=== PATIENT | female | born 1980 | race Caucasian/White ===

== ENCOUNTER 2024-12-22 11:21 | Outpatient (CLI) | payer OTHER, SELFPAY ==
--- NOTE | 2024-12-22 11:30 | ECG_ITS ---
Test Date: 2024-12-22 11:34:03 Measurements Intervals [place] Rate: 76 P: 28 TX: 157 QRS: 64 QRSD: 91 T: 36 QT: 381 QTc: 430 Interpretive Statements SINUS RHYTHM WARNING: DATA QUALITY MAY AFFECT INTERPRETATION No previous ECG available for comparison Electronically Signed On 12-22-2024 14:39:24 CDT by Guilherme Wadsworth M.D.
--- OUTSIDE RECORDS SUMMARY | 2024-12-22 12:35 | XMS_ITS | Encounter Summary ---
Author Organization [facility] Address [address] [place] [address] Care Team Providers Care Hone Operator Name Role Phone Anjali Medrano DO Primary Care Provider [phone] Encounter Details Date Type Department Care Team (Late st Contact Info) Description 04/16/2024 [facility] [address] [address] Kezia Mack FNP [address] [place] [address] XR CERVICAL SPINE 4 OR 5 VIEWS Social History Tobacco Use Types Packs/Day Years Used Date Smoking Tobacco: Never Smokeless Tobacco: Never Alcohol Use Standard Drinks/Week Comments Not Currently 1 (1 standard drink = 0.6 oz pure alcohol) Maybe once or twice a month, not weekly. 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
--- OUTSIDE RECORDS SUMMARY | 2024-12-22 12:35 | XMS_ITS | Clinical Summary ---
Author Organization [facility] Address [address] [place] [address] Care Team Providers Care Senior Industrial Engineer Name Role Phone Anjali Medrano DO Primary Care Provider [phone] Source Comments [facility],non-owned Affiliates and Associated Physician Practices is amultiple site organization consisting of ambulatory clinics and hospital sitesin [place], [place], [place] and [place]. This disclosure is being madepursuant to the Care Everywhere program and may not contain all information available regarding this patient. Last updated 17.[facility] Allergies No known active allergies Medications * Be aware that medications may not be up to date on this document. Alwaysverify current medications with the patient. Cholecalciferol (VITAMIN D3) 75 MCG (3000 UT) Active loratadine (CLARITIN) 10 MG tablet 10 mg 12/07/2006 Active Vit-Fe Fumarate-FA ( 1 PLUS 1 PO) Active COLLAGEN PO Active ISIBLOOM 0.15-30 MG-MCG tablet Take 1 tablet by mouth once daily 05/17/2020 Active Multiple Vitamin (DAILY-AMANDEEP) TABS Take 1 tablet by mouth once daily Active Active Problems No known active problems Social History Tobacco Use Types Packs/Day Years Used Date Smoking Tobacco: Never Smokeless Tobacco: Never Alcohol Use Standard Drinks/Week Comments Yes 0 (1 standard drink = 0.6 oz pur e alcohol) AUDIT-C Answer Date Recorded Q1: How often do you have a drink containing alc ohol? Monthly or less 12/25/2019 Average Number of Drinks Not on file 020 Frequency of Binge Drinking Not on file 12/02 Comments Unknown Sex and Gender Information Value Date Recorded Sex Assigned at Not on file Legal Sex Female 1:08 PM CDT Gender Identity Not on file Sexual Orientation Not on file Last Filed Vital Signs Vital Sign Reading Time Taken Comments Blood Pressure 99/70 03/04/2020 3:40 PM CORPORATE ACCOUNT EXECUTIVE Pulse 66 03/04/2020 3:40 PM CORPORATE ACCOUNT EXECUTIVE Temperature - - Respiratory Rate - - Oxygen Saturation - - Inhaled Oxygen Concentration - - Weight 65.8 kg (145 lb) 03/04/2020 2:43 PM CORPORATE ACCOUNT EXECUTIVE Height 172.7 cm (5' 8) 03/04/2020 2:43 PM CORPORATE ACCOUNT EXECUTIVE Body Mass Index 22.05 03/04/2020 2:43 PM CORPORATE ACCOUNT EXECUTIVE Plan of Treatment Health Maintenance Due Date Last Done Comments MAMMOGRAM 1981 HIV SCREENING 1996 HEPATITIS C SCREENING 10/22/1999 DTAP/TDAP/TD VACCINES (1 - Tdap) 2000 HEPATITIS B VACCINE (1 of 3 - 19+ 3-dose series) 2000 HPV VACCINE (1 - 3-dose SCDM series) 2008 DEPRESSION SCREENING 04/02/2024 COVID-19 VACCINE (1 - season) 2024 INFLUENZA VACCINE (#1) 2024 0, 12/31/2017, 12/31/2013, Additional history exists LIPID TESTING 01/04/2025 01/05/2020 ZOSTER VACCINE (1 of 2) 10/27/2031 HIB VACCINE Aged Out No longer eligi ble based on patient's age to complete this topic MENINGOCOCCAL (Group B) VACCINE SHARED DECISION-MAKING Aged Out No longer eligible based on patient's age to complete this topic MENINGOCOCCAL GROUPS A/C/Y/W VACCINE Aged Out No longer eligible based on patient's age to complete this topic PNEUMOCOCCAL VACCINE Aged Out No long er eligible based on patient's age to complete this topic Insurance [facility] Care Teams Senior Industrial Engineer Relationship Specialty Start Date End Date Anjali Medrano DO [address] [place] [address] PCP - General 12/25/19
--- OUTSIDE RECORDS SUMMARY | 2024-12-22 12:35 | XMS_ITS | Encounter Summary ---
Author Organization [facility] Address [address] [facility] [place] [address] Care Team Providers Care Motor Coach Driver Name Role Phone MarcelaAnjali Primary Care Provider [phone] Encounter Details Date Type Department Care Team (Late st Contact Info) Description 11/26/2024 Results Follow-Up [facility] Internal Medicine - [facility] [address] [place] [address] Anjali Pulliam PA [address] [facility] [address] [place] [address] HEMOGLOBIN A1C, VITAMIN D 25 HYDROXY, TSH REFLEXIVE, Additional followed-up results: 5 Social History Tobacco Use Types Packs/Day Years Used Date Smoking Tobacco: Never Smokeless Tobacco: Never Alcohol Use Standard Drinks/Week Comments Not Currently 1 (1 standard drink = 0.6 oz pure alcohol) Maybe once or twice a month, not weekly. Feeling Safe Answer Date Recorded Are you in a relationship wi th someone who hurts you emotionally and/or physically? 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 Not on file documented as of this encounter Plan of Treatment Not on file documented as of this encounter Procedures Procedure Name Priority Date/Time Associated Diagnosis Comments FOLATE, SERUM [facility] Add-on (Auto-Fax) 11/25/2024 12:00 AM CDT Macrocytosis documented in this encounter Results * FOLATE, SERUM (11/25/2024 12:00 AM CDT) FOLATE, SERUM 22.4 ng/mL [facility] Comment: Reference Range Low: <3.4 Borderline: 3.4-5.4 Normal: >5.4 Test Performed at: [facility] [address] [place] [address] Johan Reyes MD Blood 11/25/2024 11/26/2024 9:3 3 AM CDT us Anjali CHADWICK CHEMISTRY ORDERABLES Final Re sult [facility] [phone] [facility] [address] [place] [address] documented in this encounter Visit Diagnoses Diagnosis Macrocytosis- Primary Other specified diseases of blood and blood-forming organs documented in this encounter Care Teams Motor Coach Driver Relationship Specialty Start Date End Date Anjali Medrano DO [address] [place] [address] PCP - General Internal Medicine 07/17/18 documented as of this encounter
--- OUTSIDE RECORDS SUMMARY | 2024-12-22 12:35 | XMS_ITS | Clinical Summary ---
Author Organization [facility] Address [address] [place] [address] Phone Care Team Providers Care Fish Machine Feeder Name Role Phone Anjali Medrano Primary Care Provider [phone] Allergies No known active allergies Medications cholecalciferol, Vitamin D3, 125 mcg (5,000 unit) Capsule Take 5,000 Units by mouth daily. Active multivitamin (DAILY-AMANDEEP) tablet Take 1 Tablet by mouth daily. Active citalopram (CeleXA) 10 mg tablet Take 10 mg by mouth daily. 12/05/2023 Active levocetirizine (Xyzal) 5 mg tablet Take 5 mg by mouth late in the day. Active mv-mn/folic/B7/K 1/col/herb 353 (HAIR, SKIN AND NAILS, HERBS, ORAL) Take by mouth. Active ascorbic acid/collagen hydr (COLLAGEN SKIN RENEWAL ORAL) Take by mouth. Active Active Problems Patient Care Coordination No te Formatting of this note migh t be different from the original. CALL [place] FOR DELIVERY Problem Noted Date Diagnosed Date Amniotic fluid leaking 07/04/2021 Surrogate in second trimester 02/09/20 21 Advanced maternal age in multigravida, second tr imester 02/08/2021 Dichorionic diamniotic twin in second trimester 02/08/2021 Encounter for elective induction of labor 2017 (spontaneous vaginal delivery) 10/08/2017 Normal labor 11/08/2015 MIL (pit); o pos; gbs neg 06/21/2009 Encounters Date Type Department Care Team Description 12/19/2024 1:45 PM CDT Office Visit [facility] HUMIDIFIER OPERATOR - Medical [place] [address] [facility] [address] [place] [address] Brittny Patterson MD Well woman exam with routine gynecological exam (Primary Dx); Screening for cervical cancer; Need for influenza vaccination 12/16/2024 External Device Data STL ABSTRACTION Provider, Abstract 11/26/2024 Results Follow-Up [facility] Internal Medicine [place] [address] [address] [place] [phone] Anjali Pulliam PA HEMOGLOBIN A1C, VITAMIN D 25 HYDROXY, TSH REFLEXIVE, Additional followed-up results: 5 11/24/2024 3:10 PM CDT - 11/24/2024 11:59 PM CDT Hospital Encounter [facility] A [address] [place] [address] Anjali Medrano DO Discharge Disposition: Home or Self Care 11/24/2024 Results Follow-Up [facility] Internal Medicine [place] [address] [address] [place] [address] Anjali Medrano DO MAMMO 3D SACHA SCREEN BILAT W OR WO CAD 11/20/2024 3:20 PM CDT Office Visit [facility] Medicine [place] [address] [address] [place] [phone] Anjali Pulliam PA Weight gain (Primary Dx); Hyperglycemia; History of gestational diabetes; Vitamin D deficiency; Encounter for vitamin deficiency screening; Screening for cardiovascular condition 11/18/2024 External Device Data STL ABSTRACTION Provider, Abstract 10/15/2024 External Device Data STL ABSTRACTION Provider, Abstract from Last 3 Months Immunizations Immunization Administration Dates Next Due (ADACEL/BOOSTRIX)(10 YR UP) TDAP VACCINE, 0.5ML, IM 06/01/2021,08/20/2017,09/20/2015,2009 (PFIZER)(12 YR UP) COVID-19 VACCINE - EMERGENCY USE AUTHORIZATION, MRNA, [id number](PF) 30 MCG/0.3 ML IM SUSP 05/20/2020,04/29/2020 (TDVAX)(7 YRS UP) TETANUS AN D DIPHTHERIA TOXOIDS, ADSORBED (2 LF OF TETANUS TOXOID AND 2 LF OF DIPHTHERIA TOXOID), 0.5ML (PF), IM 04/02/2001 Hepatitis A Vaccine 01/09/2013,04/02/2001 INFLUENZA VACCINE QUADRIVALE NT 6 MOS UP PF IM 01/11/2021,01/05/2020 INFLUENZA VACCINE TRIVALENT SPLIT VIRUS, (6 MOS UP), 0.5ML (PF), IM 12/19/2024 Influenza A (H1N1) Vaccine IM 04/02/2009 Influenza Seasonal Unspecifi ed Formulation IM 01/15/2024,12/31/2022,05/22/2019,2017,12/31/2013,01/22/2013,04/02/2009 Influenza Vaccine Tri Rcmb 18+ PF IM 12/31/2013 Influenza Virus Vaccine, Spl it Virus (Incl. Purified Surface antigen)-retired CODE 12/31/2009 Tdap Vaccine > 7 Yo IM VFC 06/23/2009 Family History Medical History Relation Name Comments Diabetes Brother Juanjo Shukla Healthy Daughter Jasmin Moore Healthy Diabetes Father Vinicio Shukla Heart Disease Father Vinicio Shukla Kidney Disease Father Vinicio Shukla esrd due to d m Diabetes Mother Terra Shukla Healthy Son 1 [place] Healthy Healthy Son 2 Vinicio Moore Healthy Relation Name Status Comments Brother Juanjo Shukla Alive Daughter Jasmin Moore Alive Father Vinicio Shukla Mother Terra Shukla Alive Son 1 [place] Alive Son 2 Vinicio Moore Alive Social History Tobacco Use Types Packs/Day Years Used Date Smoking Tobacco: Never Passive Smoke Exposure: Never Smokeless Tobacco: Never Tobacco Cessation:Counseling Given: Not Answered Alcohol Use Standard Drinks/Week Comments Not Currently 1 (1 standard drink = 0.6 oz pure alcohol) Maybe once or twice a month, not weekly. Feeling Safe Answer Date Recorded Are you in a relationship wi th someone who hurts you emotionally and/or physically? 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 Not on file Last Filed Vital Signs Vital Sign Reading Time Taken Comments Blood Pressure 112/80 12/19/2024 1:55 PM CDT Pulse 73 11/20/2024 3:16 PM CDT Temperature 36.7 C (98 F) 07/06/2021 7:33 AM CDT Respiratory Rate 16 04/14/2024 1:14 PM BACK CLOSER Oxygen Saturation 98% 11/20/2024 3:16 PM CDT Inhaled Oxygen Concentration - - Weight 76.6 kg (168 lb 12.8 oz) 12/19/2024 1:55 PM CDT Height 170.2 cm (5' 7) 12/19/2024 1:55 PM CDT Body Mass Index 26.44 12/19/2024 1:55 PM CDT Plan of Treatment Health Maintenance Due Date Last Done Comments HPV VACCINES (1 - 3-dose SCD M series) 2008 BREAST CANCER SCREENING 11/24/2025 11/25/19, 12/19/2023, 12/18/2022, Additional history exists PAP SMEAR 12/18/2026 12/19/2023, 12/01, 11/08/2021, Additional history exists Pre-Diabetes and Diabetes Screening 11/26/2027 11/25/2024, 01/05/2020 CERVICAL CANCER SCREENING 12/18/2028 HPV/Cotest (21-29) 12/18/2028 12/19/2023, 0 12/18/2022, 11/08/2021, Additional history exists HPV/Cotest (30-65) 12/18/2028 12/19/2023, 0 12/18/2022, 11/08/2021, Additional history exists DTAP/TDAP/TD VACCINES (6 - T d or Tdap) 06/02/2031 06/01/2021, 08/20/2017, 09/20/2015, Additional history exists COVID-19 Vaccine Discontinued 05/20/2020, 04/29/2020 INFLUENZA VACCINE Completed 12/19/2024, , 12/31/2022, Additional history exists Preventative Visit- Commercial Completed 0 12/19/2024, 03/22/2020, 03/22/2020, Additional history exists Procedures Procedure Name Priority Date/Time Associated Diagnosis Comments COMPREHENSIVE METABOLIC PANEL Routine 11/25/2024 10:39 AM CDT Screening for cardiovascular condition CBC WITH DIFFERENTIAL Routine 11/25/2024 10:39 AM CDT Screening for cardiovascular condition VITAMIN B12 LEVEL Routine 11/25/2024 10:39 AM CDT Encounter for vitamin deficiency screening INSULIN LEVEL Routine 11/25/2024 10:39 AM CDT Weight gain TSH REFLEXIVE Routine 11/25/2024 10:39 AM CDT Weight gain VITAMIN D 25 HYDROXY Routine 11/25/2024 10:39 AM CDT Vitamin D deficiency HEMOGLOBIN A1C Routine 11/25/2024 10:39 AM CDT Hyperglycemia History of gestational diabetes FOLATE, SERUM [facility] (Auto-Fax) 11/25/2024 12:00 AM CDT Macrocytosis MAMMO 3D SACHA SCREEN BILAT W OR WO CAD Routine 11/24/2024 3:35 PM CDT Visit for screening mammogram CERV/VAG CYTO AGE BASED SCREEN PAP Routine 12/19/2023 2:39 PM CDT Encounter for gynecological examination without abnormal finding from Last 3 Months or Most Recently Relevant to Health Maintenance Results * TSH REFLEXIVE (11/25/2024 10:39 AM CDT) TSH 1.11 mIU/L [facility] Comment: Reference Range > or = 20 Years 0.40-4.50 Ranges First trimester 0.26-2.66 Second trimester 0.55-2.73 Third trimester 0.43-2.91 Test Performed at: [facility] [address] [place] [address] Johan Reyes MD Blood 11/25/2024 10:3 9 AM CDT 11/25/2024 10:40 AM CDT us Anjali CHADWICK CHEMISTRY ORDERABLES Final Re sult [facility] [phone] [facility] [address] [place] [address] * (ABNORMAL) CBC WITH DIFFERENTIAL (11/25/2024 10:39 AM CDT) Pathologist [facility] WBC 4.9 3.8 - 10.8 Thousand/u L [facility] RBC 4.18 3.80 - 5.10 Million/uL [facility] HEMOGLOBIN 13.9 11.7 - 15.5 g/dL [facility] HEMATOCRIT 41.9 35.0 - 45.0 % [facility] MCV 100.2(H) 80.0 - 100.0 fL [facility] MCH 33.3(H) 27.0 - 33.0 pg [facility] MCHC 33.2 32.0 - 36.0 g/dL [facility] Comment: For adults, a slight decrease in the calculated MCHC value (in the range of 30 to 32 g/dL) is most likely not clinically significant; however, it should be interpreted with caution in correlation with other red cell parameters and the patient's clinical condition. RDW 11.6 11.0 - 15.0 % [facility] PLATELETS 229 140 - 400 Thousand/u L [facility] MPV 10.5 7.5 - 12.5 fL [facility] NEUTROPHIL ABSOLUTE 2,881 1,500 - 7,800 cells/uL [facility] LYMPHOCYTE ABSOLUTE 1,240 850 - 3,900 cells/uL [facility] MONOCYTE ABSOLUTE 431 200 - 950 cells/uL [facility] EOSINOPHIL ABSOLUTE 289 15 - 500 cells/uL [facility] BASOPHILS ABSOLUTE 59 0 - 200 cells/uL [facility] NEUTROPHIL 58.8 % [facility] LYMPHOCYTES 25.3 % [facility] MONOCYTE 8.8 % [facility] EOSINOPHILS 5.9 % [facility] BASOPHILS 1.2 % [facility] Comment: FASTING:YES FASTING: YES Test Performed at: [facility] [address] [place] [address] Johan Reyes MD Blood 11/25/2024 10:3 9 AM CDT 11/25/2024 10:40 AM CDT us Anjali CHADWICK HEMATOLOGY ORDERABLES Final R esult Performing Organization Address City/State/[facility] Co de Phone Number [facility] [phone] [facility] [address] [place], [place] [address] [address] * VITAMIN D 25 HYDROXY (11/25/2024 10:39 AM CDT) VITAMIN D, 25 OH, TOTAL 89 30 - 100 ng/mL [facility] Comment: Vitamin D Status 25-OH Vitamin D: Deficiency: <20 ng/mL Insufficiency: 20 - 29 ng/mL Optimal: > or = 30 ng/mL For 25-OH Vitamin D testing on patients on D2-supplementation and patients for whom quantitation of D2 and D3 fractions is required, the [facility] 25-OH VIT D, (D2,D3), LC/MS/MS is recommended: order code 57237 (patients >2yrs). See Note 1 Note 1 For additional information, please refer to http://education.Gencore Systems.HALGI/faq/AVH354 (This link is being provided for informational/ educational purposes only.) FASTING:YES FASTING: YES Test Performed at: [facility] [address] [facility] [place] [address] Johan Reyes MD Blood 11/25/2024 10:3 9 AM CDT 11/25/2024 10:40 AM CDT Anjali CHADWICK CHEMISTRY ORDERABLES Final Re sult Performing Organization Address City/State/[facility] de Phone Number [facility] [phone] [facility] [address] [place] [address] * INSULIN LEVEL (11/25/2024 10:39 AM CDT) Pathologist [facility] INSULIN LEVEL 4.2 uIU/mL [facility] Comment: Reference Range < or = 18.4 Risk: Optimal < or = 18.4 Moderate NA High >18.4 Adult cardiovascular event risk category cut points (optimal, moderate, high) are based on Insulin Reference Interval studies performed at [facility] in 2021. FASTING:YES FASTING: YES Test Performed at: [facility] [address] [place] [address] Johan Reyes MD Blood 11/25/2024 10:3 9 AM CDT 11/25/2024 10:40 AM CDT Anjali CHADWICK CHEMISTRY ORDERABLES Final Re sult Performing Organization Address [facility] de Phone Number [facility] [phone] [facility] [address] [place] [address] * HEMOGLOBIN A1C (11/25/2024 10:39 AM CDT) Pathologist [facility] HEMOGLOBIN A1C 5.1 <5.7 % of total Hgb [facility] Comment: For the purpose of screening for the presence of diabetes: <5.7% Consistent with the absence of diabetes 5.7-6.4% Consistent with increased risk for diabetes (prediabetes) > or =6.5% Consistent with diabetes This assay result is consistent with a decreased risk of diabetes. Currently, no consensus exists regarding use of hemoglobin A1c for diagnosis of diabetes in children. According to [place] Diabetes Association (ADA) guidelines, hemoglobin A1c <7.0% represents optimal control in non- diabetic patients. Different metrics may apply to specific patient populations. Standards of Medical Care in Diabetes(ADA). ESTIMATED AVERAGE GLUCOSE (MG/DL) 100 mg/dL [facility] ESTIMATED AVERAGE GLUCOSE (MMOL/L) 5.5 mmol/L [facility] Comment: FASTING:YES FASTING: YES Test Performed at: [facility] [address] [place] [address] Johan Reyes Blood 11/25/2024 10:3 9 AM CDT 11/25/2024 10:40 AM CDT Anjali CHADWICK CHEMISTRY ORDERABLES Final Re sult Performing Organization Address City/[facility]/ZIP [facility] Phone Number [facility] [phone] [place] [address] [place] [address] * VITAMIN B12 LEVEL (11/25/2024 10:39 AM CDT) Pathologist [facility] VITAMIN B12 507 200 - 1100 pg/mL [facility] Comment: Test Performed at: [facility] [address] [place] [address] Johan Reyes MD Blood 11/25/2024 10:3 9 AM CDT 11/25/2024 10:40 AM CDT Anjali CHADWICK CHEMISTRY ORDERABLES Final Re sult Performing Organization Address City/[facility] Phone Number [facility] [phone] [facility] [address] [place] [address] * COMPREHENSIVE METABOLIC PANEL (11/25/2024 10:39 AM CDT) Pathologist [facility] GLUCOSE 84 65 - 99 mg/dL [facility] Comment: Fasting reference interval BUN 14 7 - 25 mg/dL [facility] CREATININE 0.71 0.50 - 0.99 mg/dL [facility] GFR 108 > OR = 60 mL/min/1. 73m2 [facility] BUN/CREAT RATIO SEE NOTE: 6 - 22 (calc) [facility] Comment: Not Reported: BUN and Creatinine are within reference range. SODIUM 139 135 - 146 mmol/L [facility] POTASSIUM 4.1 3.5 - 5.3 mmol/L [facility] CHLORIDE 101 98 - 110 mmol/L [facility] CO2 29 20 - 32 mmol/L [facility] CALCIUM 9.5 8.6 - 10.2 mg/dL [facility] TOTAL PROTEIN 6.8 6.1 - 8.1 g/dL [facility] ALBUMIN 4.6 3.6 - 5.1 g/dL [facility] GLOBULIN 2.2 1.9 - 3.7 g/dL (calc) [facility] ALBUMIN/GLOBULIN RATIO 2.1 1.0 - 2.5 (calc) [facility] BILIRUBIN TOTAL 0.6 0.2 - 1.2 mg/dL [facility] ALKALINE PHOSPHATASE 40 31 - 125 U/L [facility] AST 17 10 - 30 U/L [facility] ALT 10 6 - 29 U/L [facility] Comment: FASTING:YES FASTING: YES Test Performed at: [facility] [address] [place] [id number] Johan Reyes MD Blood 11/25/2024 10:3 9 AM CDT 11/25/2024 10:40 AM CDT Anjali CHADWICK CHEMISTRY ORDERABLES Final Re sult [facility] [phone] [facility] [address] * FOLATE, SERUM (11/25/2024 12:00 AM CDT) FOLATE, SERUM 22.4 ng/mL [facility] Comment: Reference Range Low: <3.4 Borderline: 3.4-5.4 Normal: >5.4 Test Performed at: [facility] [address] [place] [phone] Johan Reyes MD Blood 11/25/2024 11/26/2024 9:3 3 AM CDT Anjali CHADWICK CHEMISTRY ORDERABLES Final Re sult [facility] [phone] [facility] [address], [place] [address] * MAMMO 3D SACHA SCREEN BILAT W OR WO CAD (11/24/2024 3:35 PM CDT) Anatomical Region Laterality Modality Breast Bilateral Mammography 11/24/2024 3:35 PM CDT Impressions 11/24/2024 3:58 PM CDT IMPRESSION: Negative bilateral screening mammogram. Recommend routine followup. OVERALL FINAL ASSESSMENT: BI-RADS CATEGORY 1: Negative. DICTATION LOCATION: [facility] Narrative 11/24/2024 3:58 PM CDT BILATERAL SCREENING DIGITAL MAMMOGRAM WITH 3D TOMOSYNTHESIS AND CAD DATE: 11/24/2024 3:35 PM HISTORY: Annual screening study. COMPARISON: 12/19/2023 TECHNIQUE: A bilateral screening mammogram was performed. Low-dose full-field digital breast tomosynthesis examination was performed with 2D and 3D acquisitions. Examination is read in conjunction with computer aided detection. BREAST COMPOSITION: Scattered fibroglandular densities FINDINGS: No new masses, suspicious calcifications, or areas of asymmetry or distortion are identified. The images were reviewed using the CAD system. Anjali Medrano DO MAMMO ORDERABLES Final Result * CERV/VAG CYTO AGE BASED SCREEN PAP (12/19/2023 2:39 PM CDT) COMMENT (PAP): [facility] [place] Comment: This order for age-based cervical cancer and STI screening follows ACOG guidelines(PB 168, 140, YYY108). See individual assays for performing site location. CLINICAL INFORMATION [facility] [place] Comment:None given LAST MENSTRUAL PERIOD [facility] [place] Comment:12/10/2023 PREV PAP: [facility] [place] Comment:NONE GIVEN PREV BX: [facility] Comment:NONE GIVEN SOURCE [facility] [place] Comment:Endocervix ADEQUACY: [facility] Comment: Satisfactory for evaluation. Endocervical/transformation zone component present. PAP INTERP [facility] Comment: Cytology Results: Negative for intraepithelial lesion or malignancy. COMMENT (PAP TEST) [facility] Comment: This Pap test has been evaluated with computer assisted technology. INSTRUCTOR WARPER: Evon [place] Comment: TMK, CT(ASCP) CT screening location: [place] [address] [place] [address] EXPLANATORY NOTE [facility] Comment: EXPLANATORY NOTE: The Pap is a screening test for cervical cancer. It is not a diagnostic test and is subject to false negative and false positive results. It is most reliable when a satisfactory sample, regularly obtained, is submitted with relevant clinical findings and history, and when the Pap result is evaluated along with historic and current clinical information. HPV E6/E7 Not Detected Not Detected [facility] Comment: Methodology: Professor Of Apologetics-Mediated Amplification This assay detects E6/E7 viral messenger RNA (mRNA) from 14 high-risk HPV types (16,18,31,33,35,39,45,51,52,56,58,59,66,68). Cervical sources are required for HPV testing. If a vaginal source from a patient who has had a total hysterectomy with removal of cervix was submitted, please contact the testing laboratory for alternative testing options. For additional information, please refer to http://education.Rankomat.pl/faq/LUW550b7 (This link if provided for information/ educational purposes only.) Test Performed at: [facility] [address] [place] [address] Johan AGUIRRE Genital SWAB OF ENDOCERVIX / Unknown 12/19/2023 2:39 PM CDT 12/20/2023 12:57 AM CDT us Ania Aranda MD PATHOLOGY/CYTOLOGY ORDERAB LES Final Result [facility] [phone] [facility] [address] [place] [address] from Last 3 Months or Most Recently Relevant to Health Maintenance Insurance [employer] [facility] [facility] BLUE ACCESS CHOICE RX EXPRESS S[employer]IP[employer] Express RX [employer] Commercial Advance Directives For more information, please contact: [phone] * Full Code (Latest Code Status on File) Date Activated Date Inactivated Comments 07/04/2021 5:29 AM 07/04/2021 5:11 PM * Full Code Date Activated Date Inactivated Comments 10/08/2017 6:19 PM 10/10/2017 4:11 PM * Full Code Date Activated Date Inactivated Comments 10/08/2017 8:51 AM 10/08/2017 6:19 PM * Full Code Date Activated Date Inactivated Comments 11/08/2015 11:13 AM 11/10/2015 1:22 PM * Full Code Date Activated Date Inactivated Comments 11/08/2015 6:34 AM 11/08/2015 11:13 AM Care Teams Fish Machine Feeder Relationship Specialty Start Date End Date Anjali Medrano DO [address] [address] PCP - General Internal Medicine 07/17/18
--- OUTSIDE RECORDS SUMMARY | 2024-12-22 12:35 | XMS_ITS | Encounter Summary ---
Author Organization [facility] Address [address] [place] [address] Care Team Providers Care Pack Press Operator Name Role Phone Anjali Medrano DO Primary Care Provider Encounter Details Date Type Department Care Team (Late st Contact Info) Description 11/24/2024 Results Follow-Up [facility] Internal Medicine - [address] [place] [id number] Anjali Medrano DO 20 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 [address] [place] [address] PCP - General Internal Medicine 07/17/18 documented as of this encounter
== END 2024-12-22 11:22 | disposition home or self-care (01) ==
LOC: ANHSURGERY 11:24
PROVIDERS: Visit Provider Surgery Plastic and Reconstructive Surgery
DX: Z01.810 Encounter for preprocedural cardiovascular examination (principal); L57.4 Cutis laxa senilis
CPT/HCPCS: 93005

== ENCOUNTER 2024-12-30 00:24 | Day surgery (SDC) | payer OTHER, BC, SELFPAY ==
--- OUTSIDE RECORDS SUMMARY | 2024-06-12 04:00 | XMS_ITS ---
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
--- OUTSIDE RECORDS SUMMARY | 2024-06-17 03:24 | XMS_ITS | Continuity of Care Document ---
Author Organization [facility] Address [address] [place] [address] Phone Care Team Providers Care Strategic Planning Analyst Name Role Phone Birgit Carvajal Unavailable Unavailable Procedures Procedure Date Therapeutic Activities Therapeutic Exercise Manual Therapy Therapeutic Activities Neuromuscular Re-Ed Therapeutic Exercise Therapeutic Activities Therapeutic Exercise Manual Therapy Therapeutic Activities Therapeutic Exercise Manual Therapy PT Evaluation Moderate Complexity Therapeutic Activities Therapeutic Exercise Advance Directives Directive Yes / No Effective Date File Name No Information Encounters Encounter Description Practice Location Reason(s) For Visit Diagnoses Date Provider Providers Copied on Encounter [facility], [address] [address], [place], [place], [id number], tel:[phone] [place] No Information Lee Genao. [address] [facility], [facility] [address], [place], [facility], [place]. tel:[phone] [facility], [address], [place], [place], [id number], tel:[phone] [place] No Information Lee Genao. [address] [facility], [facility] [address], [place], [place], [facility], [place]. tel:[phone] Referring Provider: Anjali Medrano, [address] [place], [address]. tel:[phone], [id number], tel:[phone] [place] No Information Lee Birgit. [address] [place] [address], [address], [facility], . tel:[phone] Referring Provider: Anjali Medrano, [place], [address]. tel:[phone], [id number], tel:[phone] [place] No Information Lee Birgit. [address] [place] [address], [address], [facility], . tel:[phone] Referring Provider: [place], [address]. tel:[phone], [id number], tel:[phone] [place] No Information Lee Birgit. [address] [place] [address], [facility] [address], [place], [facility], . tel:[phone] Referring Provider: [place], [address]. tel:[phone], [id number], tel:[phone] [place] No Information [place] Birgit. [address] [place] [address], [address], [place], [facility], . tel:[phone] Referring Provider: [place], [address]. tel:[phone] Family History Family Member Type Diagnosis Age At Onset No Information Payers Payer name Insurance type Covered constitution party ID Authorgreyson betancur(s) [facility] Forrest [id number] Social History Type Description Quantity Date Captured Comments Sex Female Smoking Status No Information Chief Complaint And Reason For Visit No Information Reason For Referral Reason For Referral No Information History Of Present Illness Encounter Date Complaint History Of Prese nt Illness No Information Functional Status Date Functional Assessmen t No Information Instructions Date Instruction Additional Infor mation No Information Assessments Type Assessment Date No Information Patient Care Teams Name Effective Dates (start - stop) Status Members No Information
--- OUTSIDE RECORDS SUMMARY | 2024-06-18 04:00 | XMS_ITS ---
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 Yes How often did you have a dri nk containing alcohol in the past year? 2 to 4 times a month (2 points) Points 2 Interpretation Negative VITAL SIGNS BMI 24.27 kg/m2 06/18/2024 Height 67 in 06/18/2024 Weight 155 lbs 06/18/2024 Encounters Encounter Location Date Provider Diagnosis [facility] [address] [place] [address] 06/18/2024 Concepcion Sanzoscar Neck pain M54.2 and Cervical radiculopathy M54.12 ASSESSMENTS Encounter Date Diagnosis Assessment Notes Treatment Notes Treatment Clinical Notes 06/18/2024 Neck pain (ICD-10 - M54.2) 06/18/2024 Cervical radiculopathy (ICD-10 - M54.12) PLAN OF TREATMENT No Information Progress Notes * Examination Category Sub-Category Detail Notes X-Ray CERVICAL SPINE X-RAY: Seven view s of the cervical spine were obtained today. They demonstrate C5 to 6 with moderate to severe disc degeneration and right foraminal stenosis. C6 to 7 shows mild to moderate disc degeneration MRI Imaging Studies CERVICAL SPINE MRI: MRI of t he cervical spine from 05/14/2024 demonstrates C5 to 6 with a broad-based disc protrusion and moderate right foraminal stenosis. C6 to 7 shows a broad-based disc protrusion, mild bilateral foraminal stenosis, and a central HIZ. There is moderate disc degeneration from C5 to 7
--- OUTSIDE RECORDS SUMMARY | 2024-07-01 05:57 | XMS_ITS ---
Author Organization [facility] Address [address] [address] Care Team Providers Care Director Agency & Strategic Partnerships Name Role Phone Anjali Medrano Primary Care Provider Kade Moore Unavailable [phone] REASON FOR VISIT inj PROBLEMS Problem Type ICD Code Onset Dates Problem Status W/U Status Risk SNOMED Code Notes Problem Cervical radiculopathy (M54.12) Active confirmed Cervical radiculopathy (23582258) PROCEDURES Procedure Date Ordered Date Performed Result Body Sit e Cervical Selective Nerve Root Injection 07/01/2024 025 N/A Encounters Encounter Location Date Provider Diagnosis [facility] [facility] [address] [place] [address] 07/01/2024 Kade Marroquin Cervical radiculopat hy M54.12 ASSESSMENTS Encounter Date Diagnosis Assessment Notes Treatment Notes Treatment Clinical Notes 07/01/2024 Cervical radiculopathy (ICD-10 - M54.12) PLAN OF TREATMENT No Information
--- OUTSIDE RECORDS SUMMARY | 2024-07-18 03:34 | XMS_ITS ---
Author Organization [facility] Address [address] [facility] [address] [place] [address] Care Team Providers Care Bag Machine Operator Helper Name Role Phone PaulAnjali calzada Primary Care Provider Kade Moore Unavailable [phone] REASON FOR VISIT inj update Encounters Encounter Location Date Provider Diagnosis [facility] [address] [facility] [address] [place] [address] 07/18/2024 Kade Marroquin PLAN OF TREATMENT No Information
--- OUTSIDE RECORDS SUMMARY | 2024-08-13 07:33 | XMS_ITS ---
Author Organization [facility] Address [address] [facility] [address] [place] [address] Care Team Providers Care Critical Care Educator Name Role Phone Anjali Medrano Primary Care Provider Kade Moore Unavailable [phone] REASON FOR REFERRAL Reason Eval and Treat Diagnosis 1 Cervical radiculopat hy (M54.12) Referral Organization [facility] Referring Provider First Name Kade Referring Provider Last Name Lopez Referring Provider Speciality Orthopedic Surgery Referred Provider Ramila Amaro Referred Provider Specialty Physical Med icine and Rehabilitation Referral Priority Routine REASON FOR VISIT next steps Encounters Encounter Location Date Provider Diagnosis [facility] [address] [facility] [address] [place] [address] 08/13/2024 Kade Marroquin PLAN OF TREATMENT Referrals Referral Date Details Eval and TreatRosina Consultation Request Notes Referral Date Referring Provider Referred Provider Not yuly 08/13/2024 Kade Marroquin Patricia Eval and T reat
--- NOTE | 2024-12-17 14:34 | SUR.PREOP ---
[facility] has started construction of its new state of the art ER which will open Spring 2026. With this, we anticipate parking may be a challenge for some our surgical patients and families. Parking spaces are limited but are available for all Surgical, obstetrics, and ER patients sharing this lot. If you arrive and find you are having a hard time finding a parking space, please note that we understand the challenges, please drive around the hospital and park near Hospital Entrance 1. When you enter this entrance, you can ask a volunteer to direct or take you back to the surgical waiting area to check in. We appreciate everyone?s understanding of these expected challenges while we build for your future. Report to the Outpatient Waiting Room, entrance under the green pavilion located off [address], at time ___06____ on date ____12/30/24___. Planned Procedure Time: ____729____.? Time changes happen often and if your time is changed the preop area will call you the afternoon before. - You and your visitor will be asked to self-screen and do not enter if you have any COVID symptoms. Please call surgeon if you need to reschedule. - A mask is optional within the hospital at this time. Patients may have clear liquids (water, carbonated beverages, clear teas, apple juice) until 3 hours prior to surgery with a maximum of 20 ounces. - NO CLEAR LIQUIDS AFTER 0430 - No food from midnight until time of surgery and no smoking, or chewing tobacco (or any form of nicotine). No chewing gum, candy or mints. - Infants may have breast milk until 4 hours before surgery, formula 6 hours prior to surgery. - Children will be allowed to drink immediately following surgery.? If applicable, please bring a bottle or sippy cup to assist with drinking. Juice, water, soda, and popsicles are readily available.? For infants on formula, please bring formula the day of surgery.? Pacifiers are allowed. Take only the following medications with a SIP of water on the morning of surgery: N/A DO NOT STOP ANY OF YOUR OTHER PRESCRIPTION MEDICATIONS PRIOR TO SURGERY EXCEPT THE FOLLOWING Hold all vitamins and supplements for 3 days per anesthesiologist. Medications to discontinue per physician N/A Date to take last dose Please no make-up, nail romanian, hairspray, perfume, deodorant, or body powder the day of surgery.? No jewelry (including any body piercings) or valuables the day of surgery, leave them at home.? Please take a shower or bath the night before, or the morning of, surgery with an antibacterial soap.? Wear comfortable, loose fitting clothing.? Children are encouraged to wear pajamas. - Jewelry must be removed prior to entering the operating room.? Rings and piercings that are not removed may be cut off. - The hospital will not accept responsibility for valuables.? - Please leave all valuables, including medications, at home the day of surgery. If you are going home after surgery, a licensed lease purchase driver must drive you home.? - NO public transportation without another adult if you receive anesthesia. - We recommend that an adult stay with you for 24 hours following discharge. - We also recommend that you do not drive, make important decision, drink alcoholic beverages, or take any drugs that were not prescribed by your health care provider for at least 24 hours after your discharge time. For Pediatric surgeries, we recommend two adults accompany the child home. Follow any additional instructions given to you from your surgeon. Telephone instructions given to VICENTE GUERRA and asked if any additional questions and then verbalized understanding. Patient advised to call surgeon office or pre surgery nurse liaison [phone] if any additional questions.
[2024-12-17 14:50] VITALS: BMI 24.7
[2024-12-30] VITALS (15 sets, daily range): BP systolic 91–123; BP diastolic 44–69; PULSE 64–102; RESP 14–20; TEMP 36.3–37; O2SAT 95–100; BMI 24.7
--- OUTSIDE RECORDS SUMMARY | 2024-12-30 00:28 | XMS_ITS | Encounter Summary ---
Author Organization [facility] Address [address] [place] [address] Care Team Providers Care Business Development Name Role Phone Anjali Medrano DO Primary Care Provider [phone] Encounter Details Date Type Department Care Team (Late st Contact Info) Description 12/24/2024 Results Follow-Up [facility] DRY SAND MOLDER - Medical [place] [address] [facility] [address] [place] [address] Brittny Patterson MD [address] [place] [address] CERV/VAG CYTO AGE BASED SCREEN PAP Social History Tobacco Use Types Packs/Day Years Used Date Smoking Tobacco: Never Passive Smoke Exposure: Never Smokeless Tobacco: Never Alcohol Use Standard [...] Sex Assigned at Female 03/07/2024 1:31 PM SUPERVISOR GRAPHITE Legal Sex Female 5:51 AM SUPERVISOR GRAPHITE Gender Identity Female 03/07/2024 1:31 PM SUPERVISOR GRAPHITE Sexual Orientation Not on file 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
--- OUTSIDE RECORDS SUMMARY | 2024-12-30 00:28 | XMS_ITS | Clinical Summary ---
Author Organization [facility] Address [address] [place] [address] Phone Care Team Providers Care Timber Management Specialist Name Role Phone Anjali Medrano Primary Care Provider Allergies No known active allergies Medications cholecalciferol, [...] Encounters Date Type Department Care Team Description 12/24/2024 Results Follow-Up [facility] - [facility] [place] [address] [place] [address] Brittny Patterson MD CERV/VAG CYTO AGE BASED SCREEN PAP 12/19/2024 1:45 PM CDT Office Visit [facility] - [facility] [address] [place] [address] Brittny Patterson MD Well woman exam with routine gynecological exam (Primary Dx); Screening for cervical cancer; Need for influenza vaccination 12/16/2024 External Device Data STL ABSTRACTION Provider, Abstract 11/26/2024 Results Follow-Up [facility] Internal Medicine - [place] [address] [address] [place] [address] Anjali Pulliam PA HEMOGLOBIN A1C, VITAMIN D 25 HYDROXY, TSH REFLEXIVE, Additional followed-up results: 5 11/24/2024 3:10 PM CDT - 11/24/2024 11:59 PM CDT Hospital Encounter [facility] [address] [place] [address] Anjali Medrano DO Discharge Disposition: Home or Self Care 11/24/2024 Results Follow-Up [facility] Internal [facility] - [place] [address] [address] [place] [address] Anjali Medrano DO MAMMO 3D SACHA SCREEN BILAT W OR WO CAD 11/20/2024 3:20 PM CDT Office Visit [facility] - [place] [address] [address] [place] [address] Anjali Pulliam PA Weight gain (Primary Dx); [...] COVID-19 VACCINE - EMERGENCY USE AUTHORIZATION, MRNA, [id number](PF) 30 MCG/0.3 ML IM SUSP 05/20/2020,04/29/2020 (TDVAX)(7 [...] Sex Assigned at Female 03/07/2024 1:31 PM VICE PRESIDENT FOR PHILANTHROPY Legal Sex Female 5:51 AM VICE PRESIDENT FOR PHILANTHROPY Gender Identity Female 03/07/2024 1:31 PM VICE PRESIDENT FOR PHILANTHROPY Sexual Orientation Not on file 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 Not on file Last Filed Vital Signs Vital Sign Reading Time Taken Comments Blood Pressure 112/80 12/19/2024 1:55 PM CDT Pulse 73 11/20/2024 3:16 PM CDT Temperature 36.7 C (98 F) 07/06/2021 7:33 AM CDT Respiratory Rate 16 04/14/2024 1:14 PM VICE PRESIDENT FOR PHILANTHROPY Oxygen Saturation 98% 11/20/2024 3:16 PM CDT Inhaled Oxygen Concentration - - Weight 76.6 kg (168 lb 12.8 oz) 12/19/2024 1:55 PM CDT Height 170.2 cm (5' 7) 12/19/2024 1:55 PM CDT Body Mass Index 26.44 12/19/2024 1:55 PM CDT Plan of Treatment Health Maintenance Due Date Last Done Comments HPV VACCINES (1 - 3-dose SCD M series) 2008 BREAST CANCER SCREENING 11/24/2025 11/25/19 25, 12/19/2023, 12/18/2022, Additional history exists Pre-Diabetes and Diabetes Screening 11/26/2027 11/25/2024, 01/05/2020 PAP SMEAR 12/20/2027 12/19/2024, 12/01, 12/18/2022, Additional history exists CERVICAL CANCER SCREENING 12/19/2029 HPV/Cotest (21-29) 12/19/2029 12/19/2024, 0 12/19/2023, 12/18/2022, Additional history exists HPV/Cotest (30-65) 12/19/2029 12/19/2024, 0 12/19/2023, 12/18/2022, Additional history exists DTAP/TDAP/TD VACCINES (6 - T d or Tdap) 06/02/2031 06/01/2021, 08/20/2017, 09/20/2015, Additional history exists COVID-19 Vaccine Discontinued 05/20/2020, 04/29/2020 INFLUENZA VACCINE Completed 12/19/2024, , 12/31/2022, Additional history exists Preventative Visit- Commercial Completed 0 12/19/2024, 03/22/2020, 03/22/2020, Additional history exists Procedures Procedure Name Priority Date/Time Associated Diagnosis Comments CERV/VAG CYTO AGE BASED SCREEN PAP Routine 12/19/2024 2:20 PM CDT Screening for cervical cancer COMPREHENSIVE METABOLIC PANEL Routine 11/25/2024 10:39 AM [...] 3:35 PM CDT Visit for screening mammogram from Last 3 Months Results * CERV/VAG CYTO AGE BASED SCREEN PAP (12/19/2024 2:20 PM CDT) COMMENT (PAP): [facility] Comment: This order for age-based cervical cancer and STI screening follows ACOG guidelines(PB 168, 140, ZGU628). See individual assays for performing site location. CLINICAL INFORMATION [facility] Comment:None given LAST MENSTRUAL PERIOD [facility] Comment:12/12/2024 PREV PAP: [facility] Comment:NONE GIVEN PREV BX: [facility] Comment:NONE GIVEN SOURCE [facility] Comment:Endocervix ADEQUACY: [facility] Comment: Satisfactory for evaluation. Endocervical/transformation zone component present. PAP INTERP [facility] Comment: Cytology Results: Negative for intraepithelial lesion or malignancy. COMMENT (PAP TEST) [facility] Comment: This Pap test has been evaluated with the ThinPrep(R) Imaging System. TORQUE TESTER: [facility] Comment: ABC, CT(ASCP) CT Screening Location: [place] [address] [address] [address] [address] CLIA: [id number] Slide preparation performed at: [facility], [address] [place] [address], [address] CLIA: [id number] REVIEW TORQUE TESTER: [facility] Comment: KMS, CT(ASCP) CT Screening Location: [place] [address] [address] [address] CLIA: [id number] Slide preparation performed at: [facility], [address] [place] [address], [address] CLIA: [id number] EXPLANATORY NOTE Que [facility] Comment: EXPLANATORY NOTE: The Pap is a [...] information. HPV E6/E7 Not Detected Not Detected [facility] Comment: Methodology: Large Engine Assembler-Mediated Amplification This assay detects E6/E7 viral messenger RNA (mRNA) from 14 high-risk HPV types (16,18,31,33,35,39,45,51,52,56,58,59,66,68). Cervical sources are required for HPV testing. If a vaginal source from a patient who has had a total hysterectomy with removal of cervix was submitted, please contact the testing laboratory for alternative testing options. For additional information, please refer to http://education.[employer]/faq/SHB041s3 (This link if provided for information/ educational purposes only.) Test Performed at: [facility] [address] Gulshan AGUIRRE Genital SWAB OF ENDOCERVIX / Unknown 12/19/2024 2:20 PM CDT 12/22/2024 1:29 AM CDT Brittny Patterson MD PATHOLOGY/CYTOLOGY ORDERABLES Fi nal Result Performing Organization Address [facility] Co de Phone Number [facility] [phone] [address] * TSH REFLEXIVE (11/25/2024 10:39 AM CDT) TSH 1.11 mIU/L [facility] Comment: Reference Range > or = 20 Years 0.40-4.50 Ranges First trimester 0.26-2.66 Second trimester 0.55-2.73 Third trimester 0.43-2.91 Test Performed at: [facility] [address] [place] [address] Johan Reyes MD Blood 11/25/2024 10:3 9 AM CDT 11/25/2024 10:40 AM CDT Anjali CHADWICK CHEMISTRY ORDERABLES Final Re sult Performing Organization Address City/[facility]/ZIP Co de Phone Number [facility] [phone] [facility] [address] [place] [address] * (ABNORMAL) CBC WITH DIFFERENTIAL (11/25/2024 10:39 AM CDT) WBC 4.9 3.8 - 10.8 Thousand/u L [...] Comment: FASTING:YES FASTING: YES Test Performed at: [facility] [address] [address] Johan Reyes MD Blood 11/25/2024 10:3 9 AM CDT 11/25/2024 10:40 AM CDT us Anjali CHADWICK HEMATOLOGY ORDERABLES Final R esult [facility] [phone] [facility] [address] [address] * VITAMIN D 25 HYDROXY (11/25/2024 10:39 AM CDT) VITAMIN D, 25 OH, TOTAL 89 30 - 100 ng/mL [facility] Comment: Vitamin D Status 25-OH Vitamin D: Deficiency: <20 ng/mL Insufficiency: 20 - 29 ng/mL Optimal: > or = 30 ng/mL For 25-OH Vitamin D testing on patients on D2-supplementation and patients for whom quantitation of D2 and D3 fractions is required, the QuestAssure[facility](TM) 25-OH VIT D, (D2,D3), LC/MS/MS is recommended: order code 77684 (patients >2yrs). See Note 1 Note 1 For additional information, please refer to http://education.[employer]/faq/EXM480 (This link is being provided for informational/ educational purposes only.) FASTING:YES FASTING: YES Test Performed at: [facility] [place] [address] Johan Reyes MD Blood 11/25/2024 10:3 9 AM CDT 11/25/2024 10:40 AM CDT Anjali CHADWICK CHEMISTRY ORDERABLES Final Re sult [facility] [phone] [facility] [address] * INSULIN LEVEL (11/25/2024 10:39 AM CDT) Pathologist [facility] INSULIN LEVEL 4.2 uIU/mL [facility] Comment: Reference Range < or = 18.4 Risk: Optimal < or = 18.4 Moderate NA High >18.4 Adult cardiovascular event risk category cut points (optimal, moderate, high) are based on Insulin Reference Interval studies performed at [facility] in 2021. FASTING:YES FASTING: YES Test Performed at: [facility] [address] [place] [address] Johan Reyes MD Blood 11/25/2024 10:3 9 AM CDT 11/25/2024 10:40 AM CDT Anjali CHADWICK CHEMISTRY ORDERABLES Final Re sult [facility] [phone] [facility] [address] [place] [address] * HEMOGLOBIN A1C (11/25/2024 10:39 AM CDT) HEMOGLOBIN A1C 5.1 <5.7 % of total Hgb [facility] Comment: For the purpose of screening for the presence of diabetes: <5.7% Consistent with the absence of diabetes 5.7-6.4% Consistent with increased risk for diabetes (prediabetes) > or =6.5% Consistent with diabetes This assay result is consistent with a decreased risk of diabetes. Currently, no consensus exists regarding use of hemoglobin A1c for diagnosis of diabetes in children. According to [place] Diabetes Association (ADA) guidelines, hemoglobin A1c <7.0% represents optimal control in non- diabetic patients. Different metrics may apply to specific patient populations. Standards of Medical Care in Diabetes(ADA). ESTIMATED AVERAGE GLUCOSE (MG/DL) 100 mg/dL [facility] ESTIMATED AVERAGE GLUCOSE (MMOL/L) 5.5 mmol/L [facility] Comment: FASTING:YES FASTING: YES Test Performed at: [facility] [address] [address] [address] Johan Paulson Blood 11/25/2024 10:3 9 AM CDT 11/25/2024 10:40 AM CDT Anjali CHADWICK CHEMISTRY ORDERABLES Final Re sult [facility] [phone] [facility] [address] [address] [address] * VITAMIN B12 LEVEL (11/25/2024 10:39 AM CDT) VITAMIN B12 507 200 - 1100 pg/mL [facility] Comment: Test Performed at: [facility] [address] [place] [address] Johan Reyes MD Blood 11/25/2024 10:3 9 AM CDT 11/25/2024 10:40 AM CDT us Anjali CHADWICK CHEMISTRY ORDERABLES Final Re sult [facility] [phone] [facility] [address] [place] [address] * COMPREHENSIVE METABOLIC PANEL (11/25/2024 10:39 AM CDT) GLUCOSE 84 65 - 99 mg/dL [facility] [...] ALKALINE PHOSPHATASE 40 31 - 125 U/L [facility] AST 17 10 - 30 U/L [facility] ALT 10 6 - 29 U/L [facility] Comment: FASTING:YES FASTING: YES Test Performed at: [facility] [address] Johan Reyes MD Blood 11/25/2024 10:3 9 AM CDT 11/25/2024 10:40 AM CDT Anjali CHADWICK CHEMISTRY ORDERABLES Final Re sult Performing Organization Address [facility] Co de Phone Number [facility] [phone] [address] * FOLATE, SERUM (11/25/2024 12:00 AM CDT) FOLATE, SERUM 22.4 ng/mL [facility] Comment: Reference Range Low: <3.4 Borderline: 3.4-5.4 Normal: >5.4 Test Performed at: [facility] [address] Johan Reyes MD Blood 11/25/2024 11/26/2024 9:3 3 AM CDT Anjali CHADWICK CHEMISTRY ORDERABLES Final Re sult Performing Organization Address [facility] Co de Phone Number [facility] [phone] [address] [address] * MAMMO 3D SACHA SCREEN BILAT W OR WO CAD (11/24/2024 3:35 PM CDT) Anatomical Region Laterality Modality Breast Bilateral Mammography 11/24/2024 3:35 PM CDT Impressions 11/24/2024 3:58 PM CDT IMPRESSION: Negative bilateral screening mammogram. Recommend routine followup. OVERALL FINAL ASSESSMENT: BI-RADS CATEGORY 1: Negative. DICTATION LOCATION: [facility] Narrative 11/24/2024 3:58 PM CDT BILATERAL SCREENING [...] images were reviewed using the CAD system. us Anjali Medrano DO MAMMO ORDERABLES Final Result from Last 3 Months Insurance [facility] Mover CHOICE RX [employer] HEALTH Commercial Advance Directives For more information, please contact: [phone] * Full Code (Latest Code Status on [...] 6:34 AM 11/08/2015 11:13 AM Care Teams Timber Management Specialist Relationship Specialty Start Date End Date Anjali Medrano DO [address] [address] PCP - General Internal Medicine 07/17/18
--- OUTSIDE RECORDS SUMMARY | 2024-12-30 00:28 | XMS_ITS | Clinical Summary ---
Author Organization [facility] Address [address] [facility] [place] [address] Care Team Providers Care Mental Hygienist Name Role Phone Anjali Medrano DO Primary Care Provider [phone] Source Comments [facility],non-owned Affiliates and Associated Physician Practices is amultiple site organization consisting of ambulatory clinics and hospital sitesin [place], [place], [place] and [place]. This disclosure is being madepursuant to the Care Everywhere program and may not contain all information available regarding this patient. Last updated 17.[facility] Allergies No known active allergies Medications * [...] Comments Blood Pressure 99/70 03/04/2020 3:40 PM TRACK SERVICE WORKER Pulse 66 03/04/2020 3:40 PM TRACK SERVICE WORKER Temperature - - Respiratory Rate - - Oxygen Saturation - - Inhaled Oxygen Concentration - - Weight 65.8 kg (145 lb) 03/04/2020 2:43 PM TRACK SERVICE WORKER Height 172.7 cm (5' 8) 03/04/2020 2:43 PM TRACK SERVICE WORKER Body Mass Index 22.05 03/04/2020 2:43 PM TRACK SERVICE WORKER Plan of Treatment Health Maintenance Due Date [...] patient's age to complete this topic Insurance [facility] Care Teams Mental Hygienist Relationship Specialty Start Date End Date Anjali Medrano DO [address] [place] [address] PCP - General 12/25/19
--- OUTSIDE RECORDS SUMMARY | 2024-12-30 00:28 | XMS_ITS | Encounter Summary ---
Author Organization [facility] Address [address] [place] [address] Care Team Providers Care Director Of Staff Development Name Role Phone MarcelaAnjali Primary Care Provider [phone] Encounter Details Date Type Department Care Team (Late st Contact Info) Description 11/26/2024 Results Follow-Up [facility] Internal Medicine - [facility] [address] [place] [address] Anjali Pulliam PA 20 [facility] [address] [place] [address] HEMOGLOBIN A1C, [...] Sex Assigned at Female 03/07/2024 1:31 PM GYRO MECHANIC Legal Sex Female 5:51 AM GYRO MECHANIC Gender Identity Female 03/07/2024 1:31 PM GYRO MECHANIC Sexual Orientation Not on file Occupation Industry [...] 12:00 AM CDT) FOLATE, SERUM 22.4 ng/mL [facility] Comment: Reference Range Low: <3.4 Borderline: 3.4-5.4 Normal: >5.4 Test Performed at: [facility] [address] [place] [address] Johan Reyes MD Blood 11/25/2024 11/26/2024 9:3 3 AM CDT us Anjali CHDAWICK CHEMISTRY ORDERABLES Final Re sult [facility] [phone] [facility] [address] [place] [address] documented in this encounter Visit Diagnoses Diagnosis Macrocytosis- Primary Other specified diseases of blood and blood-forming organs documented in this encounter Care Teams Director Of Staff Development Relationship Specialty Start Date End Date Anjali Medrano DO [address] [place] [address] PCP - General Internal Medicine 07/17/18 documented as of this encounter
--- OUTSIDE RECORDS SUMMARY | 2024-12-30 00:28 | XMS_ITS | Patient Health Record ---
Author Organization [facility] Address [address] [facility] [address] [place], [place] [id number] Care Team Providers Care Flight Kitchen Manager Name Role Phone MARY CARMEN [place] Unavailable [phone] Reason For Referral No Information Plan Of Treatment No Information Insurance Providers Payer Name Payer Address Payer Phone Subscriber Number Group Number Insured Name Patient Relationship to Insured Coverage Start Date Coverage End Date Forrest RASHID (Anil Aguilar) [address] [place], [place] [id number] Haily Scott Self - patient is the insured
--- OUTSIDE RECORDS SUMMARY | 2024-12-30 00:28 | XMS_ITS | Encounter Summary ---
Author Organization [facility] Address [address] [place] [address] Care Team Providers Care Parking Cashier Name Role Phone Anjali Medrano DO Primary Care Provider [phone] Encounter Details Date Type Department Care Team (Late st Contact Info) Description 04/16/2024 Results Follow-Up [facility] - [address] [address] Kezia Mack FNP [address] [place] [address] XR CERVICAL SPINE 4 OR [...] Sex Assigned at Female 03/07/2024 1:31 PM TOUR PRODUCTION SUPERVISOR Legal Sex Female 5:51 AM TOUR PRODUCTION SUPERVISOR Gender Identity Female 03/07/2024 1:31 PM TOUR PRODUCTION SUPERVISOR Sexual Orientation Not on file 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
--- OUTSIDE RECORDS SUMMARY | 2024-12-30 00:28 | XMS_ITS | Encounter Summary ---
Author Organization [facility] Address [address] [place] [address] Care Team Providers Care Sitecore Developer Name Role Phone Anjali Medrano DO Primary Care Provider [phone] Encounter Details Date Type Department Care Team (Late st Contact Info) Description 11/24/2024 Results Follow-Up [facility] Internal Medicine - [address] [place] [id number] Anjali Medrano DO 20 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 [address] [place] [address] PCP - General Internal Medicine 07/17/18 documented as of this encounter
--- OUTSIDE RECORDS SUMMARY | 2024-12-30 00:28 | XMS_ITS | Patient Health Record ---
Author Organization [facility] Address [address] [place] [address] Care Team Providers Care Log Sawyer Name Role Phone Anjali Medrano Primary Care Provider Kade Moore Unavailable [phone] Concepcion Mares Unavailable [phone] ALLERGIES No Known Allergies RESULTS Component Value Reference Range Notes X ray : Cervical Spine 7 vie ws, AP, Lateral, Swimmers, Obliques, Flexion and Extension Reviewed date:06/18/2024 10:23:20 AM Interpretation:930 Performing Lab: Notes/Report: 930 REASON FOR REFERRAL Reason Eval and Treat Diagnosis 1 Cervical radiculopat hy (M54.12) Referral Organization [facility] Referring Provider First Name Kade Referring Provider Last Name Lopez Referring Provider Speciality Orthopedic Surgery Referred Provider Ramila Amaro Referred Provider Specialty Physical Med icine and Rehabilitation Referral Priority Routine MEDICATIONS Medication SIG (Take, Route, Frequency, Duration) [...] month (2 points) Points 2 Interpretation Negative PROBLEMS Problem Type ICD Code Onset Dates Problem Status W/U Status Risk SNOMED Code Notes Problem Cervical radiculopathy (M54.12) Active confirmed Cervical radiculopathy (47176808) VITAL SIGNS Height 67 in 06/18/2024 Weight 155 lbs 06/18/2024 BMI 24.27 kg/m2 06/18/2024 PROCEDURES Procedure Date Ordered Date Performed Result Body Sit e Cervical Selective Nerve Root Injection 07/01/2024 025 N/A Encounters Encounter Location Date Provider Diagnosis [facility], [address] [address] 06/12/2024 Concepcion Mares [facility], [address] [facility] [address] 06/18/2024 Concepcion Mares Neck pain M54.2 and Cervical radiculopathy M54.12 [facility] [address] [facility] [address] [address] 07/01/2024 Kade Marroquin Cervical radiculopathy M54.12 [facility], [address] [facility] [facility] [facility] [address] [address] 07/18/2024 Kade Marroquin [facility], [address] [address] 08/13/2024 Kade Marroquin ASSESSMENTS Encounter Date Diagnosis Assessment Notes Treatment Notes Treatment Clinical Notes 06/18/2024 Neck pain (ICD-10 - M54.2) 06/18/2024 Cervical radiculopathy (ICD-10 - M54.12) 07/01/2024 Cervical radiculopathy (ICD-10 - M54.12) PLAN OF TREATMENT No Information Insurance Providers Payer Name Payer Address Payer Phone Subscriber Number Group Number Insured Name Patient Relationship to Insured Coverage Start Date Coverage End Date Lien [id number] Haily Scott Self - patient is the insured MEDICAL (GENERAL) HISTORY Medical History History ICD Code Gestational Diabetes Melanoma Surgical History Surgery Date(Month/Year) Arm Fracture Bladder Sling Hospitalization History Reason Date(Month/Year) As per above.
--- NOTE | 2024-12-30 06:19 | W.PM.PROC2 ---
Procedure Note - Detailed Date of Procedure 12/30/24 Pre-op Diagnosis skin laxity, breast ptosis, micromastia, Post-op Diagnosis Same Procedure Performed 1. Bilateral augmentation mastopexy with Galaflex 2. Progressive tension abdominoplasty with suction lipectomy Surgeon Juanjo Lr MD Anesthesia General Findings Bilateral Carlin Miles SoftTouch 400 cc Subfascial Right: REF# [id number] SN [id number] Left: REF# [id number] SN [id number] Inverted T Superior medial pedicle Tissue removed: 1176.4 grams Total lipoaspirate: 3,050 cc Description of Procedure They are here today for the above procedures. Previously and again today the risks, benefits, alternatives were discussed in extensive detail. I wanted them to be very realistic about the risks involved as well as expectations. We discussed aftercare and what to monitor for. I was very upfront about the risks of wound breakdown leading to loss of skin, open wounds, and need for additional procedures with permanent abdominal deformity. We discussed DVT/PE risks and management. Made sure answered all of their questions to their satisfaction today and consent was obtained. They were marked in the preoperative holding area with their verification. The patient was taken to the operating room. Anesthesia was provided by anesthesiology. A Velasquez catheter was started. Posterior Placed prone on the operating room table with care taken to protect from injury. Prepped and draped in a standard sterile fashion. A surgical time-out was taken. Stab incisions were made and tumescent solution was infiltrated. Once adequate time was allowed for hemostasis a 5mm basket and 4mm moi cannula were utilized to complete suction lipectomy based on S.A.F.E. technique in multiple planes and passes. Suction lipectomy continued to result based on pre-operative planning, intra-operative observation, and rolling pinch test which were in full agreement. Patient was then placed supine with care taken to protect from injury. Breast She was prepped and draped in a standard sterile fashion. Tumescent was utilized laterally to provide field block Tegaderm nipple Rasheed were placed. A 15 blade used to make an incision just superior to the inframammary fold leaving a cusp of de-epithelized tissue at the t junction. Dissection was continued until the chest wall as identified. I elevated a subfascial pocket in the appropriate dimensions based on our preoperative planning for the implant. I then copiously irrigated with saline solution and verified a strict hemostasis. Next the use a triple antibiotic and Betadine containing solution to irrigate the pocket. I washed my gloves with the triple antibiotic and Betadine solution. We washed the implant immediately upon opening it with this solution and only opened it when we needed it. I used implant funnel and no-touch technique. The implant was introduced into the pocket using the funnel. Having verified positioning of the implant this was closed using 2-0 PDS. I tailor tacked the breast into position. Placed her in a sitting position. Verified the nipple-areolar location based on preoperative planning as well as intraoperative observations and measurements in full agreement. Suction lipectomy was completed laterally with a 4mm moi cannula. This was based on preoperative planning, intraoperative observation, and rolling pinch which was in full agreement. She was placed supine. I de-epithelialized the pedicle. I then removed the inferior central portion of the breast need making sure the implant was well protected. I elevated medial and lateral tissue flaps as well for planned closure. Secured the IMF with 2-0 PDS. Galaflex was soaking on the back table in a betadine solution. Trimmed and sutured into place with 2-0 Vicryl. I closed along the IMF with 2-0 PDS. Along the vertical with 2-0 PDS. I closed around the areola and the vertical incision with 3-0 Monocryl. 3-0 Stratafix along the IMF. I finally closed everything with running subcuticular 4-0 Monocryl and tissue glue. An placed Abdomen I placed the patient in a flexed position to verify the upper and lower markings would reach. I then placed supine. A thorough abdominal examination was completed. Stab incisions were made and tumescent solution infiltrated. Stab incisions were made and tumescent solution was infiltrated. Once adequate time was allowed for hemostasis a 5mm basket and 4mm moi cannula were utilized to complete suction lipectomy based on S.A.F.E. technique in multiple planes and passes. Suction lipectomy continued to result based on pre-operative planning, intra-operative observation, and rolling pinch test which were in full agreement. A 10 blade was used to make the upper incision. I continued dissection down to the level of fascia. Elevated just what was necessary for repair of the diastasis. I then again flexed the bed to verify the upper skin flap would reach the lower markings without tension. Once verified I placed her supine once again and a 10 blade used to make the lower incision. The intervening tissue was removed. A 2 mm blunt cannula with 0.5% bupivacaine was injected deep to the fascia bilaterally. Dr. Kingsley entered for the hernia repair. The patient had elected to remove the umbilicus and recreate in office in the future. See his note for details. I plicated the diastasis recti using 0 PDO Stratafix barbed suture. This was in 2 separate layers using 2 separate sutures as well. I also repaired lateral to the rectus using two layers of 0 PDO Stratafix. After the patient was flexed (below) plicated the fascia with 0 PDO Stratafix in two separate layers. The patient was flexed and starting from superior to inferior began plication using 2-0 Vicryl to obliterate all space in a standard progressive tension fashion. I continued the remainder of the plication using 2-0 Vicryl until I reached my lower planned scar line. I trimmed any excess skin of the upper flap making sure this was a tension-free closure. 15 Dougie drain was placed. I then approximated using a 3 point suture with 2-0 Vicryl followed by 2-0 PDO Stratafix, 3-0 Stratafix ,running subcuticular 4-0 Monocryl, and tissue glue. Fluffs, surgical bra, and an abdominal binder were placed. The patient was transferred to the bed in a flexed position. [place] and taken to the PACU without difficulty. All instrument and sponge counts were correct at the end of the case. Estimated Blood Loss 100 Drains Yes (15 Dougie) Packing No Pathology None sent Complications No immediate complications Condition Stable Disposition PACU
[2024-12-30] MEDS: ACETAMINOPHEN 500 MG TABLET 1000 MG PO (06:45)
[2024-12-30] MEDS: KETOROLAC 15 MG/ML VIAL (*BKC) IV PUSH (06:45)
--- NOTE | 2024-12-30 06:50 | P.PNAN_ITS ---
Anes - Initial Pre Proc Eval Procedure: Operation Date: 12/30/24 07:30 Proposed Procedures p Abdominoplasty with Liposuction, - Juanjo Lr MD s Bilateral Breast Augmentation - Juanjo Lr MD s Bilateral Breast Mastopexy - Juanjo Lr MD s Open Umbilical Hernia Repair - Wes Aguilar, DO Date/Time: 12/30/24 06:50 Surgeon: Juanjo Lr MD Pre Op Diagnosis: skin laxity, breast ptosis, micromastia, Patient Data Age: 44 Gender: F Height: 1.71 m Weight: 72.7 kg Allergies Allergy/AdvReac Type Severity Reaction Status Date / Time No Known Allergies Allergy Verified 12/17/24 14:49 Home Medications ?Medication ?Instructions ?Recorded ?Confirmed ?Type citalopram 10 mg tablet 10 mg PO HS 03/07/24 5 History Laboratory Tests 12/30/24 06:17 Cotinine Negative Patient hx anesthesia problems: none Family hx anesthesia problems: none Results Review: All pre-operative results and documents have been reviewed as part of the pre- operative evaluation. [facility] Past Medical History Medical History Anxiety Surgical History Surgical History (Updated 12/30/24 @ 06:51 by Ervin Hagan MD) History of bladder suspension procedure History of surgery on upper extremity Family History Family History Other Diabetes mellitus Heart disease Hypertension Social History Social History Smoking status: Never smoker Alcohol intake: current Do You Feel Safe in your Home?: Yes Lack of Transportation: No Lack of Food: Never True Current Housing: I Have Housing Concerned About Future Housing: No Difficulty Paying Gas/Electric Bills: No Difficulty Paying for Meds: No Currently Unemployed: No Education: Bachelor's Degree Difficulty w/ Childcare or Family Care: No Living arrangements: with family Spiritual care concerns: No Anes - Eval Final PreProcedure Day of Procedure 12/30/24 06:50 Patient weight: normal Heart: regular rate and rhythm Lungs: clear to auscultation Airway: Mallampati scale class 1 Neurological: alert and oriented Last oral intake: >/= 8 hours ASA classification: II Emergent: no Anesthetic plan: proceed Anesthesia type and monitoring: general ETT and standard monitoring Results Review: All pre-operative results and documents have been reviewed as part of the pre- operative evaluation. Informed Consent: The patient's anesthetic plan and its attendant risks and benefits were discussed with the patient/family/POA. Questions were solicited and answers provided to the satisfaction of the patient/family/POA.
[2024-12-30] MEDS: TRANEXAMIC ACID 1,000MG/ISO100 1,000 MG/100 ML BAG 200 MG IVPB (07:04)
[2024-12-30] MEDS: LACTATED RINGERS 1,000 ML 30 ML IV CONT ×4 (07:05→14:27)
--- NOTE | 2024-12-30 07:11 | PM.IMHP ---
H&P: HPI History of Present Illness Date/Time: 12/30/24 07:11 Chief Complaint: umbilical hernia Narrative: 44 yo woman presents for umbilical hernia repair at the time of abdominoplasty. She reports no changes since last seen in office. Review of Systems Review of Systems: All systems reviewed & are unremarkable except as noted in HPI and below Constitutional: Constitutional: Denies chills, Denies fever(s), Denies headache(s) and Denies weight loss Eyes: Eyes: Denies change in vision ENT: Denies dizziness, Denies headache(s), Denies neck mass and Denies throat swelling Cardiovascular: Cardiovascular: Denies chest pain, Denies lightheadedness and Denies dyspnea Respiratory: Respiratory: Denies cough, Denies dyspnea and Denies wheezing Gastrointestinal: Gastrointestinal: Denies abdominal pain, Denies change in bowel habits, Denies nausea and Denies vomiting Genitourinary: Genitourinary: Denies hematuria and Denies dysuria Musculoskeletal: Musculoskeletal: Reports as per HPI Integumentary/Breasts: Skin/Breast: Reports as per HPI Neurologic: Denies dizziness and Denies headache(s) Allergic/Immunologic: Allergic/Immunologic: Denies throat swelling and Denies wheezing PMFSH Past Medical History Medical History Anxiety Surgical History Surgical History (Updated 12/30/24 @ 06:51 by Ervin Hagan MD) History of bladder suspension procedure History of surgery on upper extremity Family History Family History Other Diabetes mellitus Heart disease Hypertension Social History Social History Smoking status: Never smoker Alcohol intake: current Do You Feel Safe in your Home?: Yes Lack of Transportation: No Lack of Food: Never True Current Housing: I Have Housing Concerned About Future Housing: No Difficulty Paying Gas/Electric Bills: No Difficulty Paying for Meds: No Currently Unemployed: No Education: Bachelor's Degree Difficulty w/ Childcare or Family Care: No Living arrangements: with family Spiritual care concerns: No Meds Home Medications and Allergies Home Medications ?Medication ?Instructions ?Recorded ?Confirmed ?Type citalopram 10 mg tablet 10 mg PO HS 03/07/24 12/17/24 History Allergies Allergy/AdvReac Type Severity Reaction Status Date / Time No Known Allergies Allergy Verified 12/30/24 07:09 Exam Const: General: no acute distress and alert Orientation/consciousness: patient oriented x3 HENMT: Head: normocephalic and atraumatic Ears: hearing grossly normal bilaterally Face/Nose/Sinus: Normal nares present Mouth: Yes Normal oral and palatal mucosa present Eyes: Periorbital: periorbital findings normal Sclera: sclerae normal EOM: EOMs intact bilaterally Neck: Neck: normal visual inspection, no lymphadenopathy and trachea midline Chest: Chest palpation & inspection: normal inspection of the chest Resp: Effort & Inspection: normal respiratory effort Auscultation: clear to auscultation bilaterally Cardio: Jugular venous distension: no JVD Rate: regular rate Rhythm: regular rhythm Heart sounds: S1 normal heart sound present and S2 normal heart sound present Peripheral pulses: Peripheral pulses 2+ throughout GI: Inspection: normal to inspection GI Palp: Yes Soft to palpation, No Tenderness to palpation present (GI), No Guarding due to palpation present (GI), Yes Hernia present umbilical < 3 cm (0.5cm umbilical hernia) and No Rebound tenderness present Percussion: Yes normal to percussion Auscultation: normal bowel sounds : General: Yes no CVA tenderness Back/Spine/Pelvis: Back: no CVA tenderness Neuro: General: patient oriented x3, no focal motor deficits and CN's II-XI intact bilaterally Cognition (Neuro): normal cognition Speech: normal speech Motor exam (neuro): 5/5 motor strength present throughout Extrem: General: capillary refill normal and no clubbing, cyanosis or edema Assessment and Plan Assessment and plan (1) Umbilical hernia: Qualifiers: Obstruction and gangrene presence: without obstruction or gangrene Qualified Code(s): K42.9 - Umbilical hernia without obstruction or gangrene Code(s): K42.9 - Umbilical hernia without obstruction or gangrene Status: Acute Assessment and Plan: I have recommended open umbilical hernia repair. I have discussed the procedure, risks, benefits, and alternatives with the patient. All questions answered. No changes since last seen in office.
--- NOTE | 2024-12-30 07:13 | WPDHPUPDATE1 ---
History and Physical Update Update Date/Time: 12/30/24 07:13 History and Physical has been reviewed, including an updated exam of the patient. There are NO changes in the patient's condition. Risks, benefits, and alternatives have been discussed and questions answered. Patient agrees to proceed with procedure.
[2024-12-30 07:16] LABS: BEDSIDEPREGUCG Negative (Negative)
--- NOTE | 2024-12-30 07:24 | WPDHPUPDATE1 ---
History and Physical Update Update Date/Time: 12/30/24 07:24 History and Physical has been reviewed, including an updated exam of the patient. There are NO changes in the patient's condition. Risks, benefits, and alternatives have been discussed and questions answered. Patient agrees to proceed with procedure.
--- NOTE | 2024-12-30 07:25 | WPDHPUPDATE1 ---
History and Physical Update Update Date/Time: 12/30/24 07:25 History and Physical has been reviewed, including an updated exam of the patient. There are NO changes in the patient's condition. Risks, benefits, and alternatives have been discussed and questions answered. Patient agrees to proceed with procedure.
[2024-12-30] MEDS: SCOPOLAMINE 1 MG PATCH 1 PATCH TRANSDERM (07:30)
[2024-12-30] MEDS: BUPIVACAINE/EPINEPHRINE 0.5% 50 ML VIAL 60 ML INFILTRATE (07:30)
[2024-12-30] MEDS: ceFAZolin 2 GM in SODIUM CHLORIDE 0.9% IV 50 ML 100 ML IVPB (07:30)
[2024-12-30] MEDS: NACL 0.9% IRRIG POUR BOTTLE 900 ML, GENTAMICIN SULFATE INJ 160 MG, ceFAZolin 2 GM, POVI... IRRIGATION (08:04)
[2024-12-30] MEDS: LACTATED RINGERS IRRIG 1,000 ML, LIDOCAINE 1% LOCAL INJ 50 ML, EPINEPHrine HCL INJ 1 MG... INFILTRATE (08:07)
--- NOTE | 2024-12-30 13:48 | P.OP_ITS ---
Procedure Note - Detailed Date of Procedure 12/30/24 Pre-op Diagnosis Umbilical hernia Post-op Diagnosis Same ( 0.5 cm umbilical hernia) Procedure Performed open 0.5 cm umbilical hernia repair Surgeon Wes Aguilar, DO Anesthesia General Indications this is a 44-year-old woman who presented with a small umbilical hernia. She was being evaluated for abdominoplasty and was noted to have a small symptomatic hernia on exam. She was then referred for surgical evaluation and for coordination of umbilical hernia repair at the time of abdominal plasty. Discussions were made with the patient about treatment options and decision was made to proceed with open umbilical hernia repair in coordination with abdominal plasty. Findings Open umbilical hernia repair was performed. The patient was found to have a 0.5 cm umbilical hernia. This was repaired once the abdominal fascia had been exposed for the abdominoplasty. The umbilical stalk had already been transected and excised with the plastic surgery portion of the procedure. I then repaired the hernia primarily using 0 Ethibond [id number] sutures. A total of 2 sutures were placed in a vertical fashion to approximate the fascial edges. No specimens were obtained for pathology for my procedure. Description of Procedure Procedure as well as risks, benefits, and alternatives were discussed with the patient. Written consent was obtained and placed in chart prior to procedure. Patient was brought back to surgical suite. She was placed supine on operating table. Time-out was done to confirm patient and procedure. She was then intuba jaron by the anesthesia department. Her abdomen was prepped and draped in sterile fashion. The patient was undergoing multiple cosmetic procedures including abdominal plasty by Dr. Lr. Please refer to his operative report for details of his procedure. I was called in once the abdominal wall had been exposed in the mid abdominal region. The excess skin, subcutaneous fat, and umbilicus had already been excised. The small hernia was identified at the location of the umbilicus. This appeared to be 0.5 cm wide. There was some diastasis associated with this particularly just cephalad to this area. No other abnormalities were noted with the hernia defect itself. The fascial edges were reapproximated at the hernia using 0 Ethibond [id number] sutures. A total of 2 sutures were placed vertically to approximate the fascial edges. The sutures were tied down and the repair was inspected which appeared secure. No other abnormalities were noted. The remainder of the procedure was then finalized by Dr. Lr. Estimated Blood Loss 0 Complications No immediate complications Condition Stable Disposition No change [facility] Billing Surgery - Charge Forward: Surgery Billing
[2024-12-30] MEDS: fentaNYL CITRATE INJ (*CRX) 100 MCG/2 ML VIAL 25 MCG IV PUSH ×3 (15:06→15:28)
[2024-12-30] MEDS: oxyCODONE HCL (*CRX) 5 MG TAB IR PO (16:34)
[2024-12-30] MEDS: ONDANSETRON INJ 4 MG/2 ML VIAL IV PUSH (17:11)
[2024-12-30] MEDS: HALOPERIDOL LACTATE 5 MG/ML VIAL IV PUSH (18:37)
== END 2024-12-30 18:55 | disposition home or self-care (01) ==
PROVIDERS: Surgery; Visit Provider Surgery Plastic and Reconstructive Surgery
PROC: (CPT 19316; principal; 2024-12-30 07:30)
PROC: (CPT 19316; 2024-12-30 07:30)
PROC: (CPT 19316; 2024-12-30 07:30)
PROC: (CPT 49591; 2024-12-30 07:30)
DX: L57.4 Cutis laxa senilis (principal); N64.81 Ptosis of breast; N64.82 Hypoplasia of breast; K42.9 Umbilical hernia without obstruction or gangrene; F41.9 Anxiety disorder, unspecified; Z98.890 Other specified postprocedural states; Z82.49 Family history of ischemic heart disease and other diseases of the circulatory system
CPT/HCPCS: 19316; 15777 ×2; 19325; 15877; 15830; 15847; 49591; 80307; J0690; A9270; J0166; J1100; J1171; J1200; J1580; J1630; J1885; J2003; J2250; J2405; J2704; J3010; J7120